=== PATIENT | female | born 1950 | race American Indian/Alaskan Native ===

== ENCOUNTER 2021-03-20 08:58 | Day surgery (SDC) | payer MEDICARE ==
[2021-03-17 09:50] LABS: Hemoglobin 13.5 gm/dl (10.1-14.3); Mean Corpuscular HGB Conc 35 % (30-34); Mean Corpuscular Volume 86 fl (79-97); Platelet Count 352 K/mm3 (140-440); Red Blood Count 4.56 M/mm3 (3.65-5.03); Red Cell Distribution Width 14.6 % (13.2-15.2)
[2021-03-17 10:01] LABS: Calcium 9.2 mg/dL (8.4-10.2)
[~2021-03-20 08:58] MED LIST: ceFAZolin/STERILE WATER 2 GM/20 ML SYRINGE IV NR
[2021-03-20] MEDS ORDERED: LACTATED RINGERS 1,000 ML ONE ×2 (09:32→13:39)
[2021-03-20] MEDS ORDERED: HYDROmorphone 1 MG/1 ML INJ IV PRN ×2 (10:06)
[2021-03-20] MEDS ORDERED: ONDANSETRON 4 MG/2 ML INJ IV PRN (10:06)
[2021-03-20] MEDS ORDERED: BUPIVACAINE/PF (0.5%) 5 MG/1 ML 30 ML VIAL INFILTRATI ONE (10:07)
--- NOTE | 2021-03-20 10:07 | Anesthesia Day of Surgery ---
Anesthesia Day of Surgery - Day of Surgery Patient Examined: Yes Patient H&P Reviewed: Yes Patient is NPO: Yes
--- NOTE | 2021-03-20 10:09 | Anesthesia Consultation ---
Anesthesia Consult and Med Hx Date of service: 03/20/21 - Airway Anesthetic Teeth Evaluation: Edentulous ROM Head & Neck: Adequate Mental/Hyoid Distance: Adequate Mallampati Class: Class II Intubation Access Assessment: Good - Pre-Operative Health Status ASA Pre-Surgery Classification: ASA2 Proposed Anesthetic Plan: General Nerve Block: IS - Pulmonary Hx Smoking: No Hx Respiratory Symptoms: No (+2FS) Hx Sleep Apnea: No (BRYCE PRE SCREEN HIGH RISK) - Cardiovascular System Hx Hypertension: Yes (2014. Pt reports negative heart cath in 2013-was gallbladder) - Central Nervous System Hx Psychiatric Problems: No - Gastrointestinal Hx Gastroesophageal Reflux Disease: No - Hematic Hx Anemia: No Hx Sickle Cell Disease: No - Other Systems Hx Cancer: No Hx Obesity: Yes
[2021-03-20] MEDS ORDERED: LACTATED RINGERS 1,000 ML IV SCH (10:15)
[2021-03-20] MEDS ORDERED: EPINEPHrine/PF 1 MG/1 ML INJ ONE (10:15)
[2021-03-20] MEDS ORDERED: MIDAZOLAM 2 MG/2 ML INJ IV NR (11:00)
[2021-03-20] MEDS ORDERED: LIDOCAINE MPF (2%) 20 MG/1 ML VIAL 5 ML ONE (11:08)
[2021-03-20] MEDS ORDERED: propofoL 200 MG/20 ML VIAL IV ONE (11:08)
[2021-03-20] MEDS ORDERED: ePHEDrine SULFATE 50 MG/1 ML INJ ONE (11:56)
[2021-03-20] MEDS ORDERED: EPINEPHrine/PF 1 MG/1 ML INJ IRRIGATION ONE (12:14)
[2021-03-20] MEDS ORDERED: SODIUM CHLORIDE 0.9% IRRIG SOLN 2000 ML IR ONE ×2 (12:15)
[2021-03-20] MEDS ORDERED: SODIUM CHLORIDE P/F VIAL 10 ML 0 ML ONE (12:50)
[2021-03-20] MEDS ORDERED: ONDANSETRON 4 MG/2 ML INJ ONE (13:29)
--- NOTE | 2021-03-20 13:34 | Procedure Note ---
Date of procedure: 03/20/21 Pre-op diagnosis: Left shoulder pain full-thickness rotator cuff tear Post-op diagnosis: same Procedure: Arthroscopy [Left] shoulder with subacromial decompression and rotator cuff tendon using suture anchors Procedure The patient was brought to the OR after being given a scalene nerve block for postop pain management . He was placed in the OR table in supine position following induction and intubation by anesthesia patient was placed in the [left] lateral decubitus position the [left] upper extremity was prepped and draped in the usual sterile manner. A timeout procedure was done to identify the patient and the correct operative site. Routine arthroscopic portals were made following introduction of the arthroscope and instruments and insufflation of the subacromial space with normal saline solution patient was noted to have a full-thickness rotator cuff tear which extended from the supraspinatus anteriorly towards the infraspinatus posteriorly in addition he was also noted to have abundant synovial bursal thickening as well as significant impingement from the acromion and acromioclavicular joints. Using a tissue ablator the soft tissue was removed from both the bursal tissues as well as the periosteal tissues overlying the distal acromion and acromioclavicular joints A large bur was used to debride the bony impingement again this was done under arthroscopic visualization. The anatomic footprint was then seen and debrided using the tissue ablator. The rotator cuff tendons was grasped using a tissue grasper and appeared to move well in the direction of anatomic repair at the footprint. Next 2 suture anchor sutures were placed into these supraspinatus tendon anteriorly as well as the infraspinatus tendon posteriorly the suture anchors were secured into the greater tuberosity followed by tightening of the sutures and pulling the rotator cuff tendon firmly onto the anatomic footprint arthroscopic photographs were obtained showing good placement of the rotator cuff repair following this the wound was copiously irrigated via stab wounds were repaired with 2 postop dressings were applied the patient was extubated and was taken to postanesthesia recovery in stable condition. Anesthesia: MAC, regional Surgeon: KONG ELIZALDE (Hanh Espino, 1st assist) Estimated blood loss: minimal Pathology: none Condition: stable Disposition: PACU
[2021-03-20 14:24] VITALS: BP 158/83
[2021-03-20] MEDS ORDERED: SODIUM CHLORIDE P/F VIAL 10 ML 10 ML ONE (15:09)
[2021-03-20] MEDS ORDERED: ONDANSETRON 4 MG ODT TAB PO PRN (15:11)
--- NOTE | 2021-03-20 16:29 | Post Anesthesia Evaluation ---
- Post Anesthesia Evaluation Patient Participated: Yes Airway Patent: Yes Stable Respiratory Function: Yes Nausea/Vomiting: No Temp > 96.8F: Yes Pain Manageable: Yes Adequeate Hydration: Yes Anesthesia Complications: No Block Receding Appropriately: Yes Patient on Ventilator: No
== END 2021-03-20 08:59 | disposition home or self-care (01) ==
LOC: OR 08:58
PROVIDERS: ATTEND Orthopaedic Surgery
DX: M25.512 Pain in left shoulder (principal); M75.102 Unspecified rotator cuff tear or rupture of left shoulder, not specified as traumatic; Z20.822 Contact with and (suspected) exposure to COVID-19; I10 Essential (primary) hypertension; Z90.49 Acquired absence of other specified parts of digestive tract; Z88.5 Allergy status to narcotic agent; Z88.8 Allergy status to other drugs, medicaments and biological substances; Z79.899 Other long term (current) drug therapy; Z90.710 Acquired absence of both cervix and uterus; Z98.890 Other specified postprocedural states
CPT/HCPCS: 29826; 29827; 36415; 64415; 80048; 85027; A4217; C1713; J0171; J0690; J1170; J2250; J2405; J2704; J3490; J7120; U0003; V2790; Q0162